=== PATIENT | male | born 1985 | race Caucasian/White ===

== ENCOUNTER 2017-03-30 06:56 | Emergency (ER) | payer OTHER ==
[~2017-03-30] VITALS: Ht 172.7 cm; Wt 71.8 kg
[2017-03-30] MEDS ORDERED: NAPROXEN 250 MG TAB PO ONE (07:15)
[2017-03-30] MEDS ORDERED: PERCOCET 5MG/325MG TAB PO ONE (07:15)
[2017-03-30] MEDS ORDERED: NAPR500T PO (09:08)
[2017-03-30] MEDS ORDERED: NORCOTAB PO (09:10)
[2017-03-30 09:16] VITALS: BP 136/96
--- NOTE | 2017-03-30 09:18 | REP ---
Left knee series: Five views. History: Trauma. Findings: Five views of the left knee demonstrate normal bones, joints, and soft tissues. A normal fabella is seen. No fracture or subluxation is seen. Impression: Negative left knee series. Signed by Broderick Gaming MD 03/30/2017 01:57 P
== END 2017-03-30 09:26 | disposition home or self-care (01) ==
LOC: M ED 06:56
DX: M25.562 Pain in left knee (principal)

== ENCOUNTER → 2022-09-26 | Outpatient (CLI) | payer OTHER ==
[~2022-09-26] MED LIST: GABA-282 PO; HYDR-3715 PO; MELO15TA28 PO; NAPR-837 PO; NAPR-885 PO; PRED20TA PO; TIZA4CAP PO
[2022-09-26 14:04] LABS: APPEARANCE, CSF CLEAR (CLEAR); COLOR, CSF COLORLESS (COLORLESS); CSF TUBE# CELL CNT TUBE 1
[2022-09-26 14:52] LABS: CSF TUBE# TP TUBE 1; TOTAL PROTEIN,CSF 39.2 MG/DL (15-45)
[2022-09-26 14:55] LABS: CSF TUBE# GLU TUBE 1
[2022-09-26 15:00] VITALS: BP 134/73
== END ==
LOC: M IRPRO 12:12
PROVIDERS: ATTEND Psychiatry & Neurology Neurology
DX: G35 Multiple sclerosis (principal)

== ENCOUNTER 2022-10-17 13:39 | Outpatient (CLI) | payer OTHER ==
[~2022-10-17] VITALS: Ht 170.2 cm; Wt 78.6 kg
[2022-10-17 13:50] VITALS: BP 146/74
[2022-10-17] MEDS ORDERED: methylPREDNISolone 1,000 MG, VIAL MATE ADAPTER 1 EACH in NS 250 ML IV ONE (14:40)
[2022-10-17] MEDS ORDERED: COPA20IN SC (14:53)
[2022-10-17 15:50] VITALS: BP 133/69
== END 2022-10-17 16:00 | disposition home or self-care (01) ==
LOC: M INFU 13:39
PROVIDERS: ATTEND Psychiatry & Neurology Neurology
DX: G35 Multiple sclerosis (principal)
CPT/HCPCS: 96365; J2930

== ENCOUNTER 2022-10-18 15:12 | Outpatient (CLI) | payer OTHER ==
[~2022-10-18] VITALS: Ht 170.2 cm; Wt 79.0 kg
[~2022-10-18 15:12] MED LIST changes: +COPA20IN SC
[2022-10-18] MEDS ORDERED: methylPREDNISolone 1,000 MG, VIAL MATE ADAPTER 1 EACH in NS 250 ML IV ONE (15:30)
[2022-10-18 15:47] VITALS: BP 147/63
[2022-10-18 16:41] VITALS: BP 121/72
== END 2022-10-18 16:45 ==
LOC: M INFU 15:12
PROVIDERS: ATTEND Psychiatry & Neurology Neurology
DX: G35 Multiple sclerosis (principal)
CPT/HCPCS: 96365; J2930

== ENCOUNTER 2022-10-19 15:21 | Outpatient (CLI) | payer OTHER ==
[~2022-10-19] VITALS: Ht 172.7 cm; Wt 71.8 kg
[2022-10-19 15:25] VITALS: BP 136/86
[2022-10-19] MEDS ORDERED: methylPREDNISolone 1,000 MG, VIAL MATE ADAPTER 1 EACH in NS 250 ML IV ONE (15:30)
[2022-10-19 16:41] VITALS: BP 156/84
== END 2022-10-19 16:45 | disposition home or self-care (01) ==
LOC: M INFU 15:21
PROVIDERS: ATTEND Psychiatry & Neurology Neurology
DX: G35 Multiple sclerosis (principal)
CPT/HCPCS: 96365; J2930

== ENCOUNTER 2023-01-19 07:44 | Outpatient (CLI) | payer OTHER ==
[~2023-01-19] VITALS: Ht 170.2 cm; Wt 80.0 kg
[2023-01-19 08:00] VITALS: BP 131/88; O2SAT 97
[2023-01-19] MEDS: diphenhydrAMINE 25MG CAP PO ONE ×2 (08:11→08:15)
[2023-01-19] MEDS ORDERED: OCRELIZUMAB 300 MG in NS 250 ML IV ONE (08:30)
[2023-01-19] MEDS ORDERED: methylPREDNISolone 125MG 2ML VIAL IV ONE (08:30)
[2023-01-19] MEDS ORDERED: ACETAMINOPHEN TAB 650MG DOSE (2X325MG) PO ONE (08:30)
[2023-01-19 09:15] VITALS: BP 118/68; O2SAT 98
[2023-01-19 09:45] VITALS: BP 115/60; O2SAT 100
[2023-01-19 10:15] VITALS: BP 109/57; O2SAT 98
[2023-01-19 11:50] VITALS: BP 132/66; O2SAT 94
== END 2023-01-19 11:50 | disposition home or self-care (01) ==
LOC: M INFU 07:44
PROVIDERS: ATTEND Psychiatry & Neurology Neurology
DX: G35 Multiple sclerosis (principal)
CPT/HCPCS: 96365; 96366; 96375; J2350; J2930

== ENCOUNTER 2023-02-03 09:35 | Outpatient (CLI) | payer OTHER ==
[~2023-02-03] VITALS: Ht 172.7 cm; Wt 71.8 kg
[~2023-02-03 09:35] MED LIST changes: +ACETAMINOPHEN TAB 650MG DOSE (2X325MG) PO ONE; +OCRELIZUMAB 300 MG in NS 250 ML IV ONE; +diphenhydrAMINE 25MG CAP PO ONE; +methylPREDNISolone 125MG 2ML VIAL IV ONE
[2023-02-03 09:49] VITALS: BP 140/85; O2SAT 99
[2023-02-03 10:47] VITALS: BP 120/82; O2SAT 98
[2023-02-03 13:15] VITALS: BP 133/73; O2SAT 98
== END 2023-02-03 13:15 ==
LOC: M INFU 09:35
PROVIDERS: ATTEND Psychiatry & Neurology Neurology
DX: G35 Multiple sclerosis (principal)
CPT/HCPCS: 96365; 96366; 96375; J2350; J2930

== ENCOUNTER → 2023-03-27 | Outpatient (CLI) | payer OTHER ==
[~2023-03-27] MED LIST changes: -ACETAMINOPHEN TAB 650MG DOSE (2X325MG) PO ONE; -OCRELIZUMAB 300 MG in NS 250 ML IV ONE; -diphenhydrAMINE 25MG CAP PO ONE; -methylPREDNISolone 125MG 2ML VIAL IV ONE
== END ==
LOC: M PLAIMG 08:23
PROVIDERS: ATTEND Physician Assistant
DX: M25.511 Pain in right shoulder (principal)

== ENCOUNTER → 2023-04-12 | Outpatient (CLI) | payer OTHER | LOC: M PLAIMG 10:44 | PROVIDERS: ATTEND Physician Assistant | DX: R94.5 Abnormal results of liver function studies (principal); R16.0 Hepatomegaly, not elsewhere classified; R93.2 Abnormal findings on diagnostic imaging of liver and biliary tract ==

== ENCOUNTER → 2023-04-19 | Outpatient (CLI) | payer OTHER ==
[~2023-04-19] MED LIST changes: +AMAN100T PO; +NEUR100C PO; +OCRE300I IV
== END ==
LOC: M CARPUL 09:18
PROVIDERS: ATTEND Physician Assistant
DX: R06.00 Dyspnea, unspecified (principal)

== ENCOUNTER → 2023-04-19 | Outpatient (CLI) | payer OTHER | LOC: M PLAIMG 12:44 | PROVIDERS: ATTEND Internal Medicine Medical Oncology | DX: D50.9 Iron deficiency anemia, unspecified (principal); K76.0 Fatty (change of) liver, not elsewhere classified; R06.00 Dyspnea, unspecified ==

== ENCOUNTER → 2023-04-19 | Outpatient (CLI) | payer OTHER | LOC: M PLAIMG 12:45 | PROVIDERS: ATTEND Physician Assistant | DX: R06.00 Dyspnea, unspecified (principal); K76.0 Fatty (change of) liver, not elsewhere classified ==

== ENCOUNTER → 2023-06-15 | Outpatient (CLI) | payer OTHER | LOC: M EKG 13:39 | PROVIDERS: ATTEND Anesthesiology | DX: Z01.818 Encounter for other preprocedural examination (principal); R00.1 Bradycardia, unspecified ==

== ENCOUNTER 2023-06-23 06:00 | Day surgery (SDC) | payer OTHER ==
[~2023-06-23] VITALS: Ht 167.6 cm; Wt 80.7 kg
[~2023-06-23 06:00] MED LIST changes: +TRANEXAMIC ACID 100 MG/ML 10ML VIAL IV ONE; +ceFAZolin SOD 2 GM in IV 1 EA IV ONE
[2023-06-23] MEDS ORDERED: LR 1,000 ML IV SCH (06:45)
[2023-06-23] MEDS ORDERED: MIDAZOLAM INJ 2MG/2ML VIAL As Ordered ONE (07:17)
[2023-06-23] MEDS ORDERED: fentaNYL 100 MCG/2 ML INJECTION As Ordered ONE ×2 (07:17→08:41)
[2023-06-23] MEDS ORDERED: propofoL 200 MG/20 ML VIAL As Ordered ONE (07:19)
[2023-06-23] MEDS ORDERED: ROCURONIUM BROMIDE 50MG/5ML VIAL As Ordered ONE (07:19)
[2023-06-23] MEDS ORDERED: LIDOCAINE 2% 100MG/5ML SDV (FOR ANES.) As Ordered ONE (07:19)
[2023-06-23] MEDS ORDERED: HEPARIN 1,000UNITS/ML 10ML VIAL (FOR RADIOLOGY & DIALYSIS ONLY) As Ordered ONE (07:19)
[2023-06-23] MEDS ORDERED: ACET1TAB55 (07:38)
[2023-06-23] MEDS ORDERED: TRANEXAMIC ACID 100 MG/ML 10ML VIAL As Ordered ONE (07:48)
[2023-06-23] MEDS ORDERED: ONDANSETRON 4MG 2ML VIAL As Ordered ONE (08:02)
[2023-06-23] MEDS ORDERED: ACETAMINOPHEN 1000MG 100ML IV BAG As Ordered ONE (08:43)
[2023-06-23] MEDS ORDERED: ONDANSETRON 4MG 2ML VIAL IV PRN (09:45)
[2023-06-23] MEDS: fentaNYL 100 MCG/2 ML INJECTION IV PRN ×4 (09:53→10:08)
[2023-06-23] MEDS: oxyCODONE 5MG TAB PO PRN ×2 (09:53→10:26)
[2023-06-23] MEDS: MORPHINE 2 MG/ML 1ML VIAL IV PRN ×2 (10:23→10:28)
[2023-06-23 12:10] VITALS: BP 134/81; TEMP 97.3; O2SAT 97
[2023-06-27] MEDS ORDERED: NARC1SPR (09:09)
[2023-06-27] MEDS ORDERED: CELE0.09 PO (09:09)
[2023-06-27] MEDS ORDERED: ACE65ERTAB PO (09:09)
[2023-06-27] MEDS ORDERED: OXYC-517 PO (09:09)
[2023-06-27] MEDS ORDERED: ASPI-226 PO (09:09)
[2023-06-27] MEDS ORDERED: DOCU100C16 PO (09:09)
== END 2023-06-23 12:15 | disposition home or self-care (01) ==
LOC: M SDC 06:00
PROVIDERS: ATTEND Orthopaedic Surgery
DX: M87.052 Idiopathic aseptic necrosis of left femur (principal); G35 Multiple sclerosis; M25.552 Pain in left hip; M19.90 Unspecified osteoarthritis, unspecified site; F41.9 Anxiety disorder, unspecified; F32.A Depression, unspecified; F43.10 Post-traumatic stress disorder, unspecified; Z79.899 Other long term (current) drug therapy; Z87.891 Personal history of nicotine dependence
CPT/HCPCS: 27299; 38230; 76000; C1713; J0131; J0665; J1100; J2250; J2405; J3010

== ENCOUNTER → 2023-08-03 | Outpatient (CLI) | payer OTHER ==
[~2023-08-03] VITALS: Ht 170.2 cm; Wt 81.8 kg
[~2023-08-03] MED LIST changes: +ACE65ERTAB PO; +ACET1TAB55; +ACETAMINOPHEN TAB 650MG DOSE (2X325MG) PO ONE; +ASPI-226 PO; +CELE0.09 PO; +DOCU100C16 PO; +NARC1SPR; +OCRELIZUMAB 600 MG in NS 500 ML IV ONE; +OXYC-517 PO; -TRANEXAMIC ACID 100 MG/ML 10ML VIAL IV ONE; -ceFAZolin SOD 2 GM in IV 1 EA IV ONE; +diphenhydrAMINE 25MG CAP PO ONE; +methylPREDNISolone 125MG 2ML VIAL IV ONE
[2023-08-03 09:25] VITALS: BP 135/90; TEMP 98.6; O2SAT 98
[2023-08-03 11:00] VITALS: BP 120/71; O2SAT 100
[2023-08-03 11:30] VITALS: BP 112/69; O2SAT 97
[2023-08-03 12:00] VITALS: BP 122/66; O2SAT 100
[2023-08-03 14:42] VITALS: BP 112/56; O2SAT 100
== END ==
LOC: M INFU 08:39
PROVIDERS: ATTEND Psychiatry & Neurology Neurology
DX: G35 Multiple sclerosis (principal)
CPT/HCPCS: 96365; 96366; 96367; J2350; J2930

== ENCOUNTER → 2023-12-20 | Outpatient (CLI) | payer OTHER ==
[~2023-12-20] MED LIST changes: -ACETAMINOPHEN TAB 650MG DOSE (2X325MG) PO ONE; +CEPH500C PO; -OCRELIZUMAB 600 MG in NS 500 ML IV ONE; -diphenhydrAMINE 25MG CAP PO ONE; -methylPREDNISolone 125MG 2ML VIAL IV ONE
== END ==
LOC: M RAD 06:28
PROVIDERS: ATTEND Orthopaedic Surgery
DX: M25.552 Pain in left hip (principal)

== ENCOUNTER 2024-02-02 09:16 | Outpatient (CLI) | payer OTHER ==
[~2024-02-02] VITALS: Ht 170.2 cm; Wt 84.0 kg
[~2024-02-02 09:16] MED LIST changes: +BACL10TA2; +D 50CAP2
[2024-02-02 09:20] VITALS: BP 129/96; O2SAT 97
[2024-02-02] MEDS: methylPREDNISolone 125MG 2ML VIAL IV ONE (09:32)
[2024-02-02] MEDS: diphenhydrAMINE 25MG CAP PO ONE (09:32)
[2024-02-02] MEDS: ACETAMINOPHEN TAB 650MG DOSE (2X325MG) PO ONE (09:33)
[2024-02-02] MEDS: OCRELIZUMAB 600 MG in NS 500 ML IV ONE (09:57)
[2024-02-02 10:30] VITALS: BP 118/76; O2SAT 96
[2024-02-02 11:30] VITALS: BP 112/72; O2SAT 95
[2024-02-02 12:00] VITALS: BP 111/78; O2SAT 98
[2024-02-02 14:05] VITALS: BP 112/66; TEMP 36.2; O2SAT 94
== END 2024-02-02 14:05 ==
LOC: M INFU 09:16
PROVIDERS: ATTEND Psychiatry & Neurology Neurology
DX: G35 Multiple sclerosis (principal)
CPT/HCPCS: 96365; 96366; 96367; J2350; J2919

== ENCOUNTER → 2024-02-22 | Outpatient (CLI) | payer OTHER | LOC: M RAD 10:06 | PROVIDERS: ATTEND Internal Medicine Hematology & Oncology | DX: K76.0 Fatty (change of) liver, not elsewhere classified (principal); K80.20 Calculus of gallbladder without cholecystitis without obstruction; R16.0 Hepatomegaly, not elsewhere classified ==

== ENCOUNTER → 2024-02-27 | Outpatient (CLI) | payer OTHER ==
[2024-02-27 13:58] LABS: ALBUMIN 4.3 G/DL (3.2-5.2); ALKALINE PHOSPHATASE 57 U/L (46-116); ALT/SGPT 86 U/L (7.0-40); AST/SGOT 32 U/L (<34); BILIRUBIN,TOTAL 0.5 MG/DL (0.3-1.2); BLOOD UREA NITROGEN 24 MG/DL (9-23); CALCIUM LEVEL 10.4 MG/DL (8.5-10.1); CARBON DIOXIDE LEVEL 24 MMOL/L (20-31); CHLORIDE LEVEL 107 MMOL/L (98-107); CREATININE FOR GFR 1.05 MG/DL (0.70-1.30); GLOMERULAR FILTRATION RATE > 60.0 (>60); GLUCOSE, FASTING 87 MG/DL (60-100); POTASSIUM SERUM 4.5 MMOL/L (3.5-5.1); SODIUM LEVEL 139 MMOL/L (136-145)
[2024-02-27 14:01] LABS: HEPATITIS B SURFACE ANTIBODY NEGATIVE (POSITIVE)
[2024-02-27 14:33] LABS: HEPATITIS C VIRUS ABY INDEX < 0.02 INDEX (<0.8)
== END ==
LOC: M LAB 12:46
PROVIDERS: ATTEND Psychiatry & Neurology Neurology
DX: G35 Multiple sclerosis (principal); K76.9 Liver disease, unspecified

== ENCOUNTER → 2024-05-16 | Outpatient (REF) | payer OTHER ==
[~2024-05-16] MED LIST changes: +GABA-1172 PO; -GABA-282 PO
[2024-05-16 09:43] LABS: BASO % 0.6 % (0.0-1.0); EOS # 0.1 10^3/uL (0.0-0.5); EOS % 1.9 % (0.0-3.0); HEMATOCRIT 49.5 % (42.0-52.0); HEMOGLOBIN 16.8 g/dl (13.5-17.5); LYMPH # 1.4 10^3/uL (1.5-5.0); LYMPH % 28.5 % (24.0-44.0); MEAN CORPUSCULAR HEMOGLOBIN 32.7 pg (27.0-33.0); MEAN CORPUSCULAR HGB CONC 33.9 g/dl (32.0-36.5); MEAN CORPUSCULAR VOLUME 96.5 fl (80.0-96.0); MONO # 0.4 10^3/uL (0.0-0.8); MONO % 7.4 % (2.0-8.0); NEUTROPHILS % 61.4 % (36.0-66.0); PLATELET COUNT, AUTOMATED 280 10^3/uL (150-450); RED BLOOD COUNT 5.13 10^6/uL (4.30-6.10); WHITE BLOOD COUNT 4.9 10^3/uL (4.0-10.0)
[2024-05-16 13:31] LABS: ALBUMIN 4.2 G/DL (3.2-5.2); ALKALINE PHOSPHATASE 56 U/L (46-116); ALT/SGPT 56 U/L (7.0-40); AST/SGOT 18 U/L (<34); BILIRUBIN,TOTAL 0.6 MG/DL (0.3-1.2); BLOOD UREA NITROGEN 20 MG/DL (9-23); CALCIUM LEVEL 10.5 MG/DL (8.5-10.1); CARBON DIOXIDE LEVEL 29 MMOL/L (20-31); CHLORIDE LEVEL 107 MMOL/L (98-107); CREATININE FOR GFR 1.17 MG/DL (0.70-1.30); FOLATE 11.7 NG/ML (>5.4); GLOMERULAR FILTRATION RATE > 60.0 (>60); GLUCOSE, FASTING 88 MG/DL (60-100); POTASSIUM SERUM 4.2 MMOL/L (3.5-5.1); SODIUM LEVEL 140 MMOL/L (136-145); TOTAL PROTEIN 7.1 G/DL (5.7-8.2)
[2024-05-16 13:32] LABS: VITAMIN B12 LEVEL 425 PG/ML (211-911)
[2024-05-17 23:28] LABS: T P ELECTROPHORESIS SO 7.1 g/dL (6.1-8.1)
[2024-05-20 08:57] LABS: ALBUMIN SPEP 4.7 g/dL (3.8-4.8); ALPHA-1-GLOBULINS SO 0.2 g/dL (0.2-0.3); ALPHA-2-GLOBULINS SO 0.7 g/dL (0.5-0.9); BETA 2 GLOBULIN 0.3 g/dL (0.2-0.5); BETA-GLOBULIN SO 0.4 g/dL (0.4-0.6); GAMMA GLOBULINS SO 0.7 g/dL (0.8-1.7)
== END ==
LOC: M LAB REF 09:21
PROVIDERS: ATTEND Psychiatry & Neurology Neurology
DX: G35 Multiple sclerosis (principal); Z79.899 Other long term (current) drug therapy

== ENCOUNTER 2024-08-05 09:54 | Outpatient (CLI) | payer OTHER ==
[2024-08-05] VITALS (7 sets, daily range): BP systolic 119–148; BP diastolic 57–97; TEMP 36.1; O2SAT 95–100
[~2024-08-05] VITALS: Ht 170.2 cm; Wt 76.8 kg
[~2024-08-05 09:54] MED LIST changes: +AMPH1CAP9
[2024-08-05] MEDS: methylPREDNISolone 125MG 2ML VIAL IV ONE (11:22)
[2024-08-05] MEDS: ACETAMINOPHEN 325 MG TAB PO ONE (11:22)
[2024-08-05] MEDS: diphenhydrAMINE 25MG CAP PO ONE (11:22)
[2024-08-05] MEDS: OCRELIZUMAB 600 MG in NS 500 ML IV ONE (11:30)
== END 2024-08-05 15:30 ==
LOC: M INFU 09:54
PROVIDERS: ATTEND Psychiatry & Neurology Neurology
DX: G35 Multiple sclerosis (principal)
CPT/HCPCS: 96365; 96366; 96375; J2350; J2919

== ENCOUNTER → 2024-09-04 | Outpatient (CLI) | payer OTHER ==
[2024-09-04 11:12] LABS: BASO # 0.1 10^3/uL (0.0-0.2); BASO % 0.8 % (0.0-1.0); EOS # 0.1 10^3/uL (0.0-0.5); EOS % 1.9 % (0.0-3.0); HEMATOCRIT 46.9 % (42.0-52.0); HEMOGLOBIN 15.8 g/dl (13.5-17.5); LYMPH # 1.7 10^3/uL (1.5-5.0); LYMPH % 26.2 % (24.0-44.0); MEAN CORPUSCULAR HEMOGLOBIN 31.8 pg (27.0-33.0); MEAN CORPUSCULAR HGB CONC 33.7 g/dl (32.0-36.5); MEAN CORPUSCULAR VOLUME 94.4 fl (80.0-96.0); MONO # 0.6 10^3/uL (0.0-0.8); MONO % 8.6 % (2.0-8.0); NEUTROPHILS % 62.2 % (36.0-66.0); PLATELET COUNT, AUTOMATED 294 10^3/uL (150-450); RED BLOOD COUNT 4.97 10^6/uL (4.30-6.10); WHITE BLOOD COUNT 6.4 10^3/uL (4.0-10.0)
[2024-09-04 11:25] LABS: INR 0.97; PROTHROMBIN TIME 13.2 SECONDS (12.5-14.5)
[2024-09-04 11:32] LABS: HEMOGLOBIN A1c 5.5 % (4.0-6.0)
[2024-09-04 11:37] LABS: ERYTHROCYTE SEDIMENTATION RATE 9 mm/hr (0-15)
[2024-09-04 11:40] LABS: ALBUMIN 3.9 G/DL (3.2-5.2); ALKALINE PHOSPHATASE 46 U/L (40-129); ALT/SGPT 27 U/L (7.0-40); AST/SGOT 16 U/L (<34); BILIRUBIN,TOTAL 0.4 MG/DL (0.3-1.2); BLOOD UREA NITROGEN 17 MG/DL (9-23); C REACTIVE PROTEIN QUANTITATIV < 0.50 MG/DL (<1.0); CALCIUM LEVEL 9.9 MG/DL (8.5-10.1); CARBON DIOXIDE LEVEL 30 MMOL/L (20-31); CHLORIDE LEVEL 105 MMOL/L (98-107); GLOMERULAR FILTRATION RATE > 60.0 (>60); GLUCOSE, FASTING 90 MG/DL (60-100); POTASSIUM SERUM 4.9 MMOL/L (3.5-5.1); SODIUM LEVEL 143 MMOL/L (136-145); TOTAL PROTEIN 6.7 G/DL (5.7-8.2)
[2024-09-04 11:45] LABS: TOTAL 25(OH) VITAMIN D 49.8 NG/ML (20.0-100.0)
== END ==
LOC: M LAB 10:08
PROVIDERS: ATTEND Psychiatry & Neurology Neurology
DX: M87.052 Idiopathic aseptic necrosis of left femur (principal); Z79.899 Other long term (current) drug therapy

== ENCOUNTER → 2024-09-23 | Outpatient (REF) | payer OTHER ==
[~2024-09-23] MED LIST changes: +TRAM50TA2 PO
[2024-09-23 08:36] LABS: APPEARANCE, URINE CLEAR (CLEAR); BACTERIA, URINE AUTO NEGATIVE (NEGATIVE); BILIRUBIN, URINE AUTO NEGATIVE (NEGATIVE); BLOOD, URINE BLOOD NEGATIVE (NEGATIVE); COLOR, URINE YELLOW (YELLOW); GLUCOSE, URINE (UA) AUTO NEGATIVE (NEGATIVE); KETONE, URINE AUTO TRACE mg/dL (NEGATIVE); LEUKOCYTE ESTERASE, URINE AUTO NEGATIVE (NEGATIVE); NITRITE, URINE AUTO NEGATIVE (NEGATIVE); PROTEIN, URINE AUTO NEGATIVE (NEGATIVE); RBC, URINE AUTO 0 /HPF (0-3); SPECIFIC GRAVITY URINE AUTO 1.023 (1.002-1.035); SQUAMOUS EPITHELIAL CELL UR AU 0 /HPF (0-6); UROBILINOGEN, URINE AUTO 0.2 mg/dL (0.0-2.0); WBC, URINE AUTO 1 /HPF (0-3)
[2024-09-23 08:41] LABS: BASO % 0.7 % (0.0-1.0); EOS # 0.1 10^3/uL (0.0-0.5); EOS % 1.9 % (0.0-3.0); HEMATOCRIT 51.1 % (42.0-52.0); LYMPH # 1.4 10^3/uL (1.5-5.0); LYMPH % 25.9 % (24.0-44.0); MEAN CORPUSCULAR HEMOGLOBIN 31.2 pg (27.0-33.0); MEAN CORPUSCULAR HGB CONC 33.3 g/dl (32.0-36.5); MEAN CORPUSCULAR VOLUME 93.8 fl (80.0-96.0); MONO # 0.5 10^3/uL (0.0-0.8); MONO % 9.3 % (2.0-8.0); NEUTROPHILS # 3.3 10^3/uL (1.5-8.5); PLATELET COUNT, AUTOMATED 272 10^3/uL (150-450); RED BLOOD COUNT 5.45 10^6/uL (4.30-6.10); WHITE BLOOD COUNT 5.4 10^3/uL (4.0-10.0)
[2024-09-23 09:05] LABS: BLOOD UREA NITROGEN 18 MG/DL (9-23); CALCIUM LEVEL 10.1 MG/DL (8.5-10.1); CARBON DIOXIDE LEVEL 27 MMOL/L (20-31); CHLORIDE LEVEL 104 MMOL/L (98-107); CREATININE FOR GFR 1.07 MG/DL (0.70-1.30); GLOMERULAR FILTRATION RATE > 60.0 (>60); GLUCOSE, FASTING 94 MG/DL (60-100); POTASSIUM SERUM 4.4 MMOL/L (3.5-5.1); SODIUM LEVEL 141 MMOL/L (136-145)
[2024-09-23 09:08] LABS: INR 0.96; PARTIAL THROMBOPLASTIN TIME 29.5 SECONDS (24.8-34.2); PROTHROMBIN TIME 13.1 SECONDS (12.5-14.5)
== END ==
LOC: M LAB REF 08:10
PROVIDERS: ATTEND Internal Medicine
DX: Z01.818 Encounter for other preprocedural examination (principal)

== ENCOUNTER → 2024-10-01 | Outpatient (CLI) | payer OTHER ==
[~2024-10-01] MED LIST changes: +BACL10TA2 PO; +GABA-1490 PO; +OMEP40CA4 PO; +VITA100093 PO
== END ==
LOC: M RAD 09:42
PROVIDERS: ATTEND Orthopaedic Surgery
DX: M87.052 Idiopathic aseptic necrosis of left femur (principal)

== ENCOUNTER 2024-10-15 09:17 | Observation (INO) | payer OTHER ==
[~2024-10-15] VITALS: Ht 170.2 cm; Wt 77.6 kg
[2024-10-15] VITALS (8 sets, daily range): BP systolic 122–151; BP diastolic 68–95; TEMP 97.5–98.1; O2SAT 93–98
[2024-10-15] MEDS ORDERED: ONDANSETRON 4MG 2ML VIAL As Ordered ONE (09:54)
[2024-10-15] MEDS ORDERED: LIDOCAINE 2% 100MG/5ML SDV (FOR ANES.) As Ordered ONE (09:54)
[2024-10-15] MEDS ORDERED: propofoL 200 MG/20 ML VIAL As Ordered ONE (09:54)
[2024-10-15] MEDS ORDERED: MIDAZOLAM INJ 2MG/2ML VIAL As Ordered ONE (09:54)
[2024-10-15] MEDS: LR 1,000 ML IV SCH (10:02)
[2024-10-15] MEDS ORDERED: ROCURONIUM BROMIDE 50MG/5ML VIAL As Ordered ONE (10:21)
[2024-10-15] MEDS ORDERED: ESOM40CA35 PO (10:27)
[2024-10-15] MEDS ORDERED: HOME MED LIST COMPLETE! XX SCH (10:30)
[2024-10-15] MEDS ORDERED: NEUR300C PO (10:46)
[2024-10-15] MEDS ORDERED: fentaNYL 100 MCG/2 ML INJECTION As Ordered ONE (10:54)
[2024-10-15] MEDS ORDERED: KETAMINE HCL 200MG/20ML VIAL As Ordered ONE (10:55)
[2024-10-15] MEDS ORDERED: PHENYLephrine 500MCG 5ML (100MCG/ML) SYRINGE As Ordered ONE (10:57)
[2024-10-15] MEDS ORDERED: GLYCOPYRROLATE INJ 0.2 MG/ML 2 ML VIAL As Ordered ONE (10:57)
[2024-10-15] MEDS ORDERED: ePHEDrine SULFATE 25 MG/5 ML(5MG/ML) SYRINGE As Ordered ONE (10:57)
[2024-10-15] MEDS ORDERED: TRANEXAMIC ACID 100 MG/ML 10ML VIAL ONE (11:04)
[2024-10-15] MEDS: ceFAZolin SODIUM 2 GM VIAL As Ordered ONE (11:54)
[2024-10-15] MEDS: TRANEXAMIC ACID 100 MG/ML 10ML VIAL As Ordered ONE (11:59)
[2024-10-15] MEDS ORDERED: ACETAMINOPHEN 1000MG/100ML IV BAG As Ordered ONE (12:51)
[2024-10-15] MEDS ORDERED: SUGAMMADEX SODIUM 500 MG/5 ML VIAL (BRIDION) As Ordered ONE (13:09)
[2024-10-15] MEDS: VANCOMYCIN 1000MG/20ML VIAL As Ordered ONE (13:46)
[2024-10-15] MEDS: REK 50ML SYRINGE IA ONE (14:03)
[2024-10-15] MEDS ORDERED: SENNA 8.6 MG TAB (SENOKOT) PO PRN (14:30)
[2024-10-15] MEDS ORDERED: fentaNYL 100 MCG/2 ML INJECTION IV PRN (14:30)
[2024-10-15] MEDS ORDERED: ONDANSETRON 4MG 2ML VIAL IV PRN (14:30)
[2024-10-15] MEDS ORDERED: oxyCODONE 5MG TAB PO PRN ×2 (14:30)
[2024-10-15] MEDS: oxyCODONE 5MG TAB PO PRN (15:15)
[2024-10-15] MEDS: MORPHINE 2 MG/ML 1ML VIAL IV PRN (15:16)
[2024-10-15] MEDS: ONDANSETRON 4MG 2ML VIAL IV PRN ×2 (15:16→20:47)
[2024-10-15] MEDS: ACETAMINOPHEN 325 MG TAB PO SCH (17:08)
[2024-10-15] MEDS: ASCORBIC ACID 500 MG TAB PO SCH (17:08)
[2024-10-15] MEDS: FERROUS SULFATE 325MG TAB PO SCH (17:09)
[2024-10-15] MEDS: ceFAZolin SODIUM 2 GM in DEXTROSE 5% (D5W) ADV/MINI-BAG 50 ML IV SCH (20:45)
[2024-10-15] MEDS: ASPIRIN 81MG ENTERIC TABLET PO SCH (20:46)
[2024-10-15] MEDS: DOCUSATE SODIUM 100MG CAPSULE PO SCH (20:46)
[2024-10-15] MEDS: CelecoXIB (CeleBREX) 100 MG CAP PO SCH (20:46)
[2024-10-16 04:44] VITALS: BP 137/88; TEMP 98.1; O2SAT 94
[2024-10-16 06:24] LABS: HEMATOCRIT 40.3 % (42.0-52.0); HEMOGLOBIN 13.9 g/dl (13.5-17.5); MEAN CORPUSCULAR HEMOGLOBIN 32.3 pg (27.0-33.0); MEAN CORPUSCULAR HGB CONC 34.5 g/dl (32.0-36.5); MEAN CORPUSCULAR VOLUME 93.5 fl (80.0-96.0); PLATELET COUNT, AUTOMATED 285 10^3/uL (150-450); RED BLOOD COUNT 4.31 10^6/uL (4.30-6.10); WHITE BLOOD COUNT 13.5 10^3/uL (4.0-10.0)
[2024-10-16 06:53] LABS: ALBUMIN 3.7 G/DL (3.2-5.2); ALKALINE PHOSPHATASE 44 U/L (40-129); ALT/SGPT 50 U/L (7.0-40); AST/SGOT 46 U/L (<34); BILIRUBIN,TOTAL 0.6 MG/DL (0.3-1.2); BLOOD UREA NITROGEN 9 MG/DL (9-23); CALCIUM LEVEL 9.5 MG/DL (8.5-10.1); CARBON DIOXIDE LEVEL 25 MMOL/L (20-31); CHLORIDE LEVEL 107 MMOL/L (98-107); CREATININE FOR GFR 0.89 MG/DL (0.70-1.30); GLOMERULAR FILTRATION RATE > 60.0 (>60); GLUCOSE, FASTING 102 MG/DL (60-100); POTASSIUM SERUM 4.3 MMOL/L (3.5-5.1); SODIUM LEVEL 142 MMOL/L (136-145); TOTAL PROTEIN 6.5 G/DL (5.7-8.2)
[2024-10-16 08:00] VITALS: BP 137/89; TEMP 97.9; O2SAT 94
[2024-10-16] MEDS: CEFDINIR 300 MG CAP (OMNICEF) PO SCH (08:15)
[2024-10-16] MEDS ORDERED: OXYC-517 PO (10:02)
[2024-10-16] MEDS ORDERED: CEFD300CAP PO (10:02)
[2024-10-16] MEDS ORDERED: ASPI81TAEC PO (10:02)
[2024-10-16] MEDS ORDERED: ACET32TAB PO (10:02)
[2024-10-16] MEDS ORDERED: CELE100C PO (10:02)
== END 2024-10-16 13:00 | disposition home or self-care (01) ==
LOC: M SDC 09:17 → M MS5PR 16:52
PROVIDERS: ADMIT Orthopaedic Surgery; ATTEND Orthopaedic Surgery
DX: M87.852 Other osteonecrosis, left femur (principal); G35 Multiple sclerosis; K76.0 Fatty (change of) liver, not elsewhere classified; M19.90 Unspecified osteoarthritis, unspecified site; Z79.899 Other long term (current) drug therapy; R32 Unspecified urinary incontinence; Z85.828 Personal history of other malignant neoplasm of skin; K21.9 Gastro-esophageal reflux disease without esophagitis
CPT/HCPCS: 27130; 36415; 72170; 80053; 85027; 88311; 97110; 97161; 97165; 97530; 97535; C1776; G0378; J0131; J0171; J0690; J1100; J1885; J2250; J2371; J2405; J2795; J3010; J3370

== ENCOUNTER → 2024-10-29 | Outpatient (CLI) | payer OTHER ==
[~2024-10-29] MED LIST changes: +ACET32TAB PO; +ASPI81TAEC PO; +CEFD300CAP PO; +CELE100C PO; +ESOM40CA35 PO; +NEUR300C PO
== END ==
LOC: M SOG 07:50
PROVIDERS: ATTEND Orthopaedic Surgery
DX: Z96.642 Presence of left artificial hip joint (principal); Z47.1 Aftercare following joint replacement surgery

== ENCOUNTER → 2024-11-04 | Outpatient (RCR) | payer OTHER | LOC: M PT 10-08 08:38 | PROVIDERS: ATTEND Orthopaedic Surgery | DX: M87.052 Idiopathic aseptic necrosis of left femur (principal) ==

== ENCOUNTER 2024-12-03 12:15 | Outpatient (RCR) | payer OTHER | END 2024-12-04 | LOC: M PT 12:15 | PROVIDERS: ATTEND Orthopaedic Surgery | DX: M87.052 Idiopathic aseptic necrosis of left femur (principal) ==

== ENCOUNTER → 2024-12-10 | Outpatient (CLI) | payer OTHER | LOC: M SOG 07:51 | PROVIDERS: ATTEND Orthopaedic Surgery | DX: Z47.1 Aftercare following joint replacement surgery (principal) ==

== ENCOUNTER 2025-02-12 07:51 | Outpatient (RCR) | payer OTHER ==
[~2025-02-12 07:51] MED LIST changes: -ACE65ERTAB PO; +ACET-1593 PO
== END 2025-03-06 ==
LOC: M PT 07:51
PROVIDERS: ATTEND Orthopaedic Surgery
DX: R26.89 Other abnormalities of gait and mobility (principal)

== ENCOUNTER → 2025-02-19 | Outpatient (REF) | payer OTHER ==
[~2025-02-19] MED LIST changes: +ACE65ERTAB PO; -ACET-1593 PO
[2025-02-19 11:15] LABS: ALT/SGPT 42.0 U/L (7.0-40); AST/SGOT 24.0 U/L (<34)
== END ==
LOC: M LAB REF 10:08
PROVIDERS: ATTEND Student in an Organized Health Care Education/Training Program
DX: K21.9 Gastro-esophageal reflux disease without esophagitis (principal); R13.10 Dysphagia, unspecified; R79.89 Other specified abnormal findings of blood chemistry; R93.2 Abnormal findings on diagnostic imaging of liver and biliary tract; K59.00 Constipation, unspecified

== ENCOUNTER 2025-03-06 09:21 | Outpatient (CLI) | payer OTHER ==
[~2025-03-06] VITALS: Ht 170.2 cm; Wt 77.2 kg
[~2025-03-06 09:21] MED LIST changes: -ACE65ERTAB PO; +ACET-1593 PO
[2025-03-06 09:30] VITALS: BP 132/85; O2SAT 98
[2025-03-06] MEDS: ACETAMINOPHEN 325 MG TAB PO ONE (09:49)
[2025-03-06] MEDS: OCRELIZUMAB 600 MG in NS 500 ML IV ONE (10:12)
[2025-03-06 10:45] VITALS: BP 121/78; O2SAT 98
[2025-03-06 11:15] VITALS: BP 120/89; O2SAT 97
[2025-03-06 11:45] VITALS: BP 112/77; O2SAT 98
[2025-03-06 12:15] VITALS: BP 119/81; O2SAT 98
[2025-03-06 13:57] VITALS: BP 118/78; O2SAT 98
== END 2025-03-06 14:00 | disposition home or self-care (01) ==
LOC: M INFU 09:21
PROVIDERS: ATTEND Psychiatry & Neurology Neurology
DX: G35 Multiple sclerosis (principal)
CPT/HCPCS: 96365; 96366; 96375; J2350; J2919

== ENCOUNTER → 2025-06-17 | Outpatient (CLI) | payer OTHER | LOC: M SOG 07:40 | PROVIDERS: ATTEND Orthopaedic Surgery | DX: Z96.642 Presence of left artificial hip joint (principal); Z47.1 Aftercare following joint replacement surgery ==